=== PATIENT | male | born 1950 | race Caucasian/White ===

== ENCOUNTER 2020-11-21 02:44 | Emergency (ER) | payer MEDICARE, OTHER ==
[2020-11-21] MEDS ORDERED: Cyclobenzaprine 10 MG Tab PO ONE (02:57)
[2020-11-21] MEDS ORDERED: traMADol 50 MG Tab PO ONE (02:57)
[2020-11-21] MEDS ORDERED: Ketorolac 30 MG/ML SDV IM ONE (02:57)
--- NOTE | 2020-11-21 03:15 | EDM.PDOC ---
ED HPI GENERAL MEDICAL PROBLEM - General Stated Complaint: low back pain Time Seen by Provider: 11/21/20 03:05 Source of Information: Reports: Patient History Limitations: Reports: No Limitations - History of Present Illness INITIAL COMMENTS - FREE TEXT/NARRATIVE: Patient presented to the Ed because ow low back pain. The pain is 8/10, worse with movement. he had this a month ago and it went away on it's own. Right Lower Back Pain Score (Numeric/FACES): 8 - Related Data Allergies Allergy/AdvReac Type Severity Reaction Status Date / Time No Known Allergies Allergy Verified 11/21/20 03:21 Home Meds: Home Meds Cyclobenzaprine [Flexeril] 10 mg PO Q8H PRN #15 tab 11/21/20 [Rx] traMADol [Ultram] 100 mg PO Q8H PRN #15 tab 11/21/20 [Rx] ED ROS GENERAL - Review of Systems Review Of Systems: See Below Constitutional: Reports: No Symptoms HEENT: Reports: No Symptoms Respiratory: Reports: No Symptoms Cardiovascular: Reports: No Symptoms Endocrine: Reports: No Symptoms GI/Abdominal: Reports: No Symptoms : Reports: No Symptoms Musculoskeletal: Reports: Back Pain Skin: Reports: No Symptoms Neurological: Reports: No Symptoms ED EXAM,LOWER BACK PAIN/INJURY - Physical Exam Exam: See Below Exam Limited By: No Limitations General Appearance: Alert, No Apparent Distress Ears: Normal External Exam Nose: Normal Inspection, Normal Mucosa Throat/Mouth: Normal Inspection Head: Atraumatic, Normocephalic Neck: Normal Inspection, Supple, Non-Tender, Full Range of Motion Respiratory/Chest: No Respiratory Distress, Lungs Clear, Normal Breath Sounds Cardiovascular: Normal Peripheral Pulses, Regular Rate, Rhythm, No Edema, No Gallop, No JVD, No Murmur, No Rub GI/Abdominal: Normal Bowel Sounds, Soft, Non-Tender, No Organomegaly Back Exam: Normal Inspection, Muscle Spasm, Paraspinal Tenderness Extremities: Normal Inspection, Normal Range of Motion, Non-Tender Course - Vital Signs Text/Narrative:: Toradol 30 mg IM Tramadol 100 mg PO x1 Flexeril 10 mg PO x1 Last Recorded V/S: Last Vital Signs Temp 36.5 C 11/21/20 02:59 Pulse 59 L 11/21/20 02:59 Resp 20 11/21/20 02:59 BP 178/101 H 11/21/20 02:59 Pulse Ox 100 11/21/20 02:59 - Orders/Labs/Meds Meds: Medications Discontinued Medications Generic Name Dose Route Start Last Admin Trade Name Vicky PRN Reason Stop Dose Admin Cyclobenzaprine HCl 10 mg 11/21/20 02:57 11/21/20 03:03 Flexeril PO 11/21/20 02:58 10 mg ONETIME ONE Administration Ketorolac Tromethamine 30 mg 11/21/20 02:57 11/21/20 03:02 Toradol IM 11/21/20 02:58 30 mg ONETIME ONE Administration Tramadol HCl 100 mg 11/21/20 02:57 11/21/20 03:03 Ultram PO 11/21/20 02:58 100 mg ONETIME ONE Administration Departure - Departure Time of Disposition: 03:30 Disposition: Home, Self-Care 01 Condition: Good Clinical Impression: Acute low back pain - Discharge Information Prescriptions: Cyclobenzaprine [Flexeril] 10 mg PO Q8H PRN #15 tab PRN Reason: Spasms traMADol [Ultram] 100 mg PO Q8H PRN #15 tab PRN Reason: Pain Instructions: Acute Back Pain, Adult Referrals: Ovi eNgron MD [Primary Care Provider] - Forms: ED Department Discharge Additional Instructions: Please read discharge instructions on low back pain Apply ice or heat whichever makes the pain feel better Take the following medicines all at the same time for better pain relief: ibuprofen 800 mg, tylenol 1000mg, flexeril 10 mg every 8 hours as a needed for pain and spasm Tramadol 100 mg every 8 hours as needed for moderate to severate to Follow up as needed Sepsis Event Note (ED) - Evaluation Sepsis Screening Result: No Definite Risk - Focused Exam Vital Signs: Vital Signs Temp Pulse Resp BP Pulse Ox 11/21/20 02:59 36.5 C 59 L 20 178/101 H 100
== END 2020-11-21 03:45 | disposition home or self-care (01) ==
LOC: FB.ED 02:44
DX: M54.5 Low back pain (principal)
CPT/HCPCS: 96372; 99283; A9270; J1885

== ENCOUNTER 2021-11-14 07:20 | Day surgery (SDC) | payer MEDICARE, OTHER ==
[~2021-11-14 07:20] MED LIST: Lactated Ringers 1,000 ML IV SCH; Sodium Chloride 0.9% 10 ML Syringe FLUSH PRN
[2021-11-14] MEDS ORDERED: Propofol 200 MG/20 ML SDV IV ONE (07:21)
== END 2021-11-14 10:00 | disposition home or self-care (01) ==
LOC: FB.SDS 07:20
PROVIDERS: ATTEND Surgery
DX: Z12.11 Encounter for screening for malignant neoplasm of colon (principal); D12.6 Benign neoplasm of colon, unspecified; K57.30 Diverticulosis of large intestine without perforation or abscess without bleeding; K21.9 Gastro-esophageal reflux disease without esophagitis; J45.909 Unspecified asthma, uncomplicated; Z98.890 Other specified postprocedural states; Z80.0 Family history of malignant neoplasm of digestive organs; Z79.899 Other long term (current) drug therapy; Z87.891 Personal history of nicotine dependence
CPT/HCPCS: 00811; 45384; 88305; J2704; J7120

== ENCOUNTER 2023-01-12 16:59 | Emergency (ER) | payer MEDICARE, OTHER ==
[2023-01-12 17:57] LABS: ESTIMATED GFR 72 mL/min (>60)
== END 2023-01-12 18:28 ==
LOC: FB.ED 16:59
DX: R20.2 Paresthesia of skin (principal); I10 Essential (primary) hypertension; J45.909 Unspecified asthma, uncomplicated
CPT/HCPCS: 36415; 70450; 80053; 83880; 84484; 85025; 85730; 86140; 93005; 99285

== ENCOUNTER 2024-12-16 07:09 | Day surgery (SDC) | payer MEDICARE, OTHER ==
[~2024-12-16 07:09] MED LIST changes: -Lactated Ringers 1,000 ML IV SCH
[2024-12-16] MEDS ORDERED: Lidocaine 2% 100 MG/5 ML Syringe IVPUSH ONE (07:10)
[2024-12-16] MEDS ORDERED: Midazolam 1 MG/ML 2 ML SDV IV ONE (07:10)
[2024-12-16] MEDS ORDERED: fentaNYL 100 MCG/2 ML SDV IV ONE (07:10)
[2024-12-16] MEDS ORDERED: Propofol 200 MG/20 ML SDV IV ONE (07:10)
[2024-12-16] MEDS: Lactated Ringers 1,000 ML IV SCH (08:01)
[2024-12-16] MEDS: ceFAZolin 2 GM Vial IVPUSH ONE (08:09)
[2024-12-16] MEDS: Lidocaine 1% with EPINEPHrine 1:100,000 20 ML MDV INJECT ONE (08:46)
[2024-12-16] MEDS: Bupivacaine 0.5% 30 ML SDV INJECT ONE (08:46)
== END 2024-12-16 10:10 | disposition home or self-care (01) ==
LOC: FB.SDS 07:09
PROVIDERS: ATTEND Surgery
DX: D17.1 Benign lipomatous neoplasm of skin and subcutaneous tissue of trunk (principal); J45.909 Unspecified asthma, uncomplicated; K21.9 Gastro-esophageal reflux disease without esophagitis; Z79.899 Other long term (current) drug therapy; Z87.891 Personal history of nicotine dependence
CPT/HCPCS: 00300; 88304; 99100; J0665; J0690; J2004; J2250; J2704; J3010; J7120

== ENCOUNTER 2025-08-27 08:32 | Day surgery (SDC) | payer MEDICARE ==
[2025-08-27] MEDS ORDERED: Propofol 200 MG/20 ML SDV IV ONE (08:33)
[2025-08-27] MEDS ORDERED: Sodium Chloride 0.9% 10 ML Syringe FLUSH PRN (08:45)
[2025-08-27] MEDS: Lactated Ringers 1,000 ML IV SCH (09:25)
== END 2025-08-27 11:21 ==
LOC: FB.SDS 08:32
PROVIDERS: ATTEND Surgery
DX: Z12.11 Encounter for screening for malignant neoplasm of colon (principal); D12.6 Benign neoplasm of colon, unspecified; Z80.0 Family history of malignant neoplasm of digestive organs; Z79.82 Long term (current) use of aspirin; Z79.899 Other long term (current) drug therapy; Z87.891 Personal history of nicotine dependence; Z86.0101 Personal history of adenomatous and serrated colon polyps
CPT/HCPCS: 00811; 45385; 88305; 99100; A9270; J2003; J2704; J7120